=== PATIENT | male | born 1995 ===

== ENCOUNTER 2017-11-26 11:54 | Emergency (ER) | payer OTHER ==
[2017-11-26 12:49] LABS: CHLORIDE,CL 104 mmol/L (98-107); SODIUM,NA 141 mmol/L (136-145)
--- NOTE | 2017-11-26 13:42 | EDM.PDOC ---
ED HPI GENERAL MEDICAL PROBLEM - General Chief Complaint: Cardiovascular Problem Stated Complaint: Dizziness; heart racing Time Seen by Provider: 11/26/17 12:06 Source of Information: Reports: Patient, Family History Limitations: Reports: No Limitations - History of Present Illness INITIAL COMMENTS - FREE TEXT/NARRATIVE: Patient complains of having episodic dizziness/foggy vision sensation that started around 1 hour prior to presentation. Once at ER, he started having generalized shakes. Family members have had colds recently at home, but he denies having had signs of a developing cold/URI. Had normal day yesterday, and usual morning today. Normal energy level, eating well, no bowel/bladder changes. No fevers. Had an episode of shaking similar to this in the past. Was observed in the hospital. Symptoms resolved. No specific cause found. Foggy vision/light headed feeling not triggered by head rotation. Comes and goes. [place] like heart was going more quickly. No other reported changes. - Related Data Allergies Allergy/AdvReac Type Severity Reaction Status Date / Time No Known Allergies Allergy Verified 11/26/17 12:02 Home Meds: Home Meds Losartan [Cozaar] 25 mg PO DAILY 11/26/17 [History] Past Medical History Cardiovascular History: Reports: Other (See Below) (Mitral Valve Prolapse, also has aortic abnormality but patient cannot recall what it is.) Musculoskeletal History: Reports: Other (See Below) (Marfan's syndrome, scoliosis) ED ROS GENERAL - Review of Systems Review Of Systems: See Below Constitutional: Reports: Other (generalized shaking resembling chills but denies fever) HEENT: Reports: Vision Change (brief "foggy vision" changes) Respiratory: Reports: No Symptoms Cardiovascular: Reports: Lightheadedness (comes/goes with the foggy vision). Denies: Chest Pain, Dyspnea on Exertion, Edema GI/Abdominal: Reports: No Symptoms : Reports: No Symptoms Musculoskeletal: Reports: No Symptoms Skin: Reports: No Symptoms Neurological: Reports: Tremors. Denies: Confusion, Headache, Numbness, Paresthesia, Seizure, Syncope, Tingling, Trouble Speaking, Weakness, Change in Speech Psychiatric: Reports: No Symptoms Hematologic/Lymphatic: Reports: No Symptoms ED EXAM, GENERAL - Physical Exam Exam: See Below Exam Limited By: No Limitations General Appearance: Alert, Other (tall, thin, somewhat anxious. Is having generalized muscle shaking resembling chills. ) Eye Exam: Bilateral Eye: EOMI, PERRL, Other (no obvious acute eye changes, difficult to assess retina) Ears: Normal External Exam, Normal Canal, Other (both ear canals blocked by thick, darkened cerumen) Nose: Normal Inspection Throat/Mouth: Normal Inspection, Normal Oropharynx, Normal Voice, No Airway Compromise Head: Atraumatic, Normocephalic Neck: Normal Inspection, Supple, Non-Tender, Full Range of Motion Respiratory/Chest: No Respiratory Distress, Lungs Clear, Normal Breath Sounds, Chest Non-Tender Cardiovascular: Normal Peripheral Pulses, Regular Rate, Rhythm, No Edema, No Murmur Peripheral Pulses: 2+: Radial (L), Radial (R) GI/Abdominal: Normal Bowel Sounds, Soft, Non-Tender, No Distention (Male) Exam: Deferred Rectal (Males) Exam: Deferred Back Exam: Normal Inspection. No: CVA Tenderness (L), CVA Tenderness (R), Decreased Range of Motion, Muscle Spasm, Paraspinal Tenderness, Vertebral Tenderness Extremities: Normal Inspection, Normal Range of Motion, Non-Tender, No Pedal Edema, Normal Capillary Refill Neurological: Alert, Oriented, CN II-XII Intact, Normal Cognition, Normal Gait, Normal Reflexes, No Motor/Sensory Deficits Psychiatric: Anxious Skin Exam: Warm, Dry, Intact, Normal Color EKG INTERPRETATION EKG Date: 11/26/17 Time: 12:08 Rhythm: NSR Rate (Beats/Min): 73 [place]: Normal P-Wave: Present QRS: Other (Increased voltage/LVH) ST-T: Normal QT: Normal Comparison: NA - No Prior EKG Course - Vital Signs Last Recorded V/S: Last Vital Signs Temp 36.9 C 11/26/17 11:54 Pulse 106 H 11/26/17 11:54 Resp 13 11/26/17 12:45 BP 124/71 11/26/17 12:45 Pulse Ox 77 L 11/26/17 12:45 - Orders/Labs/Meds Orders: Active Orders 24 hr Category Date Time Status EKG Documentation Completion [RC] ASDIRECTED Care 11/26/17 12:25 Active Head wo Cont [CT] Stat Exams 11/26/17 12:09 Taken UA W/MICROSCOPIC [URIN] Stat Lab 11/26/17 13:00 Ordered Labs: Laboratory Tests 11/26/17 11/26/17 11/26/17 Range/Units 12:30 12:30 13:00 WBC 5.3 (4.0-10.2) K/uL RBC 4.79 (4.33-5.41) M/uL Hgb 15.0 (13.1-16.8) g/dL Hct 42.5 (39.0-49.0) % MCV 88.7 (84.0-98.0) fL MCH 31.3 (28.2-33.3) pg MCHC 35.3 (31.7-36.0) g/dL RDW 12.2 (11.2-14.1) % Plt Count 158 (150-350) K/uL Neut % (Auto) 59.5 (45.0-80.0) % Lymph % (Auto) 28.8 (10.0-50.0) % [place] % (Auto) 9.2 (2.0-14.0) % Eos % (Auto) 1.7 (0.0-5.0) % Baso % (Auto) 0.8 (0.0-2.0) % Neut # (Auto) 3.16 (1.40-7.00) K/uL Lymph # (Auto) 1.53 (0.50-3.50) K/uL [place] # (Auto) 0.49 (0.00-1.00) K/uL Eos # (Auto) 0.09 (0.00-0.50) K/uL Baso # (Auto) 0.04 (0.00-0.20) K/uL Sodium 141 (136-145) mmol/L Potassium 3.8 (3.5-5.1) mmol/L Chloride 104 (98-107) mmol/L Carbon Dioxide 26.5 (21.0-32.0) mmol/L BUN 14 (7-18) mg/dL Creatinine 0.83 (0.51-1.17) mg/dL Est Cr Clr Drug Dosing TNP Estimated GFR (MDRD) > 60 mL/min Glucose 101 (74-106) mg/dL Calcium 8.7 (8.5-10.1) mg/dL Magnesium 1.9 (1.8-2.4) mg/dL Total Bilirubin 0.5 (0.2-1.0) mg/dL AST 16 (15-37) U/L ALT 16 (12-78) U/L Alkaline Phosphatase 59 (46-116) IU/L Total Protein 6.9 (6.4-8.2) g/dL Albumin 4.1 (3.4-5.0) g/dL Specimen Type Urinblad Urine Color Yellow Urine Appearance Clear Urine pH 7.0 (5.0-9.0) Ur Specific [place] 1.010 (1.005-1.030) Urine Protein Negative (NEGATIVE) mg/dL Urine Glucose (UA) Negative (NEGATIVE) mg/dL Urine Ketones Negative (NEGATIVE) mg/dL Urine Occult Blood Negative (NEGATIVE) Urine Nitrite Negative (NEGATIVE) Urine Bilirubin Negative (NEGATIVE) Urine Urobilinogen 0.2 (0.2-1.0) E.U./dL Ur Leukocyte Esterase Negative (NEGATIVE) Urine RBC 0-5 /HPF Urine WBC 0-5 /HPF Ur Epithelial Cells Rare /LPF Urine Bacteria Rare (NONE TO FEW) /HPF - Radiology Interpretation Free Text/Narrative:: Head CT negative for acute changes per Radiology - Re-Assessments/Exams Free Text/Narrative Re-Assessment/Exam: Labs, EKG, and CT of head performed to look for possible causes of patient's complaint. EKG showed LVH but was otherwise unremarkable, as were labs and head CT. With time, heart rate slowed from 100-110 to 80s. Patient appeared more relaxed. Shaking "chills" resolved. Patient remained afebrile. Denies return of foggy vision/light-headed sensation. Overall unremarkable workup. Uncertain as to cause of episode. Again, patient had similar one in the past and no specific cause identified. He does not appear to be developing any signs of infection at this time. No fever generated after shaking resolved. Mom felt that she noticed slight "tic" in patient's left cheek which to staff was not obvious. We discussed admission to observation but patient and his mother refused and said that they would rather go home. Plan formulated that patient and family would observe for changes, signs of infection,etc. and follow up as needed. Radiology suggested MRI if any concern remained regarding neurologic etiology for vision/muscle shaking symptoms. Cannot rule out anxiety/behavioral contribution to presenting complaints. Patient does have Cardiology appointment in 3 weeks. Departure - Departure Time of Disposition: 13:42 Disposition: Home, Self-Care 01 Condition: Good Clinical Impression: Episode of shaking Referrals: PCP,Unknown [Primary Care Provider] - Forms: ED Department Discharge Additional Instructions: Observe closely for any other changes, such as developing fever or other signs of illness. As we discussed, we do not know what caused your symptoms. You may need further testing if these symptoms return. - My Orders Last 24 Hours: My Active Orders 11/26/17 12:09 Head wo Cont [CT] Stat 11/26/17 12:25 EKG Documentation Completion [RC] ASDIRECTED 11/26/17 13:00 UA W/MICROSCOPIC [URIN] Stat - Assessment/Plan Last 24 Hours: My Active Orders 11/26/17 12:09 Head wo Cont [CT] Stat 11/26/17 12:25 EKG Documentation Completion [RC] ASDIRECTED 11/26/17 13:00 UA W/MICROSCOPIC [URIN] Stat
== END 2017-11-26 13:55 | disposition home or self-care (01) ==
LOC: LL.ED 11:54
DX: R25.1 Tremor, unspecified (principal); R42 Dizziness and giddiness; Z79.899 Other long term (current) drug therapy
CPT/HCPCS: 36415; 70450; 80053; 81001; 83735; 85025; 93005; 99285